=== PATIENT | male | born 1990 | race American Indian/Alaskan Native ===

== ENCOUNTER 2019-09-19 19:42 | Emergency (ER) | payer OTHER ==
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
[2019-09-19 23:44] VITALS: BP 159/85
== END 2019-09-19 23:30 | disposition home or self-care (01) ==
LOC: ED 19:42
DX: S39.012A Strain of muscle, fascia and tendon of lower back, initial encounter (principal); V89.2XXA Person injured in unspecified motor-vehicle accident, traffic, initial encounter; Y93.89 Activity, other specified; Y92.410 Unspecified street and highway as the place of occurrence of the external cause; Y99.8 Other external cause status
CPT/HCPCS: 99282